=== PATIENT | female | born 1985 | race Caucasian/White ===

== ENCOUNTER 2023-09-03 12:21 | Emergency (ER) | payer MEDICAID ==
[~2023-09-03] VITALS: Ht 152.4 cm; Wt 83.0 kg
[2023-09-03 12:52] VITALS: BP_SYST 149; PULSE 119; RESP 19; TEMP 96.9; O2SAT 97
[2023-09-03 13:03] LABS: BASOPHILS # (AUTO) 0.1 K/uL (0.0-0.2); BASOPHILS % (AUTO) 1.1 % (0.0-2.0); EOSINOPHILS # (AUTO) 0.2 K/uL (0.0-0.4); EOSINOPHILS % (AUTO) 2.3 % (0.0-4.0); HEMATOCRIT 34.6 % (36-48); HEMOGLOBIN 11.1 g/dL (12.0-16.0); LYMPHOCYTES # (AUTO) 2.3 K/uL (1.0-5.5); LYMPHOCYTES % (AUTO) 28.8 % (20.5-51.5); MEAN CORPUSCULAR HEMOGLOBIN 27 pg (27-31); MEAN CORPUSCULAR HGB CONC 32 % (32-36); MEAN CORPUSCULAR VOLUME 83 fL (79.0-98.0); MONOCYTES # (AUTO) 0.6 K/uL (0.0-1.0); MONOCYTES % (AUTO) 7.8 % (1.7-9.3); NEUTROPHILS # (AUTO) 4.8 K/uL (1.8-7.7); PLATELET COUNT (AUTO) 333 K/uL (130-430); RED BLOOD CELL COUNT(AUTO) 4.17 MIL/uL (4.2-6.2); RED CELL DISTRIBUTION WIDTH 15.6 % (9.0-15.0)
[2023-09-03 13:15] LABS: CALCIUM 8.9 mg/dL (8.4-11.0); CREATININE 0.71 mg/dL (0.55-1.30); POTASSIUM 3.9 mmol/L (3.5-5.1)
[2023-09-03 13:20] LABS: ALBUMIN 3.8 g/dL (3.4-4.8); TOTAL PROTEIN, SERUM 7.8 g/dL (6.4-8.3)
[2023-09-03] MEDS ORDERED: IBUPROFEN 600 MG TABLET PO ONE (13:30)
[2023-09-03] MEDS ORDERED: HYDR-3921 PO (15:06)
[2023-09-03] MEDS ORDERED: HYDROcodone/ACETAMIN 7.5-325 MG TAB PO ONE (15:15)
[2023-09-03 15:24] VITALS: BP_SYST 121; PULSE 109; RESP 18; TEMP 98.4; O2SAT 96
== END 2023-09-03 15:20 | disposition home or self-care (01) ==
LOC: SED 12:21
DX: N92.0 Excessive and frequent menstruation with regular cycle (principal); R53.1 Weakness; Z79.899 Other long term (current) drug therapy
CPT/HCPCS: 36415; 76830-TC; 76857; 80053; 81025; 84702; 85025; 99284